=== PATIENT | female | born 1980 | race Caucasian/White ===

== ENCOUNTER 2016-12-17 04:19 | Inpatient (IN) | payer OTHER ==
[~2016-12-17] VITALS: Ht 162.6 cm; Wt 77.9 kg
[~2016-12-17 04:19] MED LIST: DILT120T10 PO; NO ACTIVE MEDS
[2016-12-17 04:22] VITALS: BP 137/91; PULSE 76; RESP 18; O2SAT 100
--- NOTE | 2016-12-17 04:33 | ED.REPORT ---
HPI-Abd Pain F Under 39 Date of Service December 17, 2016 ED Provider: Dr. Perico Haines M.D. 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 Associated symptoms include nausea and vomiting. The patient denies other symptoms. She has had similar symptoms in the past. The patient has been seen in clinic since onset where labs indicated elevated liver enzymes and and an MRCP showed scarring in the common bile duct with partial obstruction, per the patient. Her labs and MRCP were ordered by Dr. Mcgraw. Nursing Notes Stated Complaint: ABDOMINAL PAIN/VOMITING Chief Complaint: Female Abdominal Pain Nursing Notes Reviewed: Yes Allergies: Coded Allergies: No Known Allergies (Verified , 12/17/16) Scheduled Diltiazem-Expunged Drug, Do Not Renew! (Diltiazem-Expunged Drug, Do Not Renew!) 120 Mg Tablet 120 MG PO DAILY Miscellaneous Medications ([No Active Meds]) General Time Seen by MD: 04:32 Chief Complaint Abdominal pain Hx Obtained From: Patient Arrived By: Walk-in Sudden in Onset?: No Onset Occurred: 2 days ago Symptom Duration: Since onset Location: : RUQ Quality: Painful Severity: Current: Moderate Severity: Maximum: Moderate Pertinent Negative: Relieved by nothing Context Related History: Reports: Abdominal surgery Recent Healthcare: Recent doctor visit Similar Sx Previous: Yes Past Medical History Past Medical History Nephrolithiasis Biliary colic Type 2 sphincter of Oddi dysfunction Past Surgical History Biliary sphincterotomy x2 with evidence of biliary stent restenosis Cholecystectomy Reports: Cholecystectomy Social History Rarely drinks alcohol Other Social History: Good social support Ambulatory Status Independent Review of Systems Constitutional: Denies: Fever Respiratory: Denies: Non-productive cough, Shortness of breath GI: Reports: Abdominal pain (RUQ), Nausea, Vomiting Complete sys rev & neg: except as marked. Physical Exam Initial Vital Signs Vital Signs (First) Date Time Temp Pulse Resp B/P Pulse Ox O2 Delivery O2 Flow Rate FiO2 12/17/16 04:22 37.0 76 18 137/91 100 Room Air Initial VS: Reviewed, Vital signs abnormal Head / Eyes: Atraumatic, Normocephalic ENT: Conjunctiva normal, No scleral icterus Neck: Supple, Full range of motion Skin: Warm, Dry, No cyanosis Neurologic: Alert, Oriented, Nonfocal Psychiatric: Mood/affect normal, Behavior normal, Normal thought content General/Constitutional: Awake, Alert, No acute distress Appearance / Presentation: Positive: Uncomfortable Fatigued Respiratory / Chest: Breath sounds NL, Breath sounds = bilat, No respiratory distress Cardiovascular: Heart rate NL, Regular rhythm, Heart sounds NL Abdomen: Soft Tenderness/Guarding/Rebound: Positive: Tender RUQ... Interpretation & Diagnostics Lab Results Interpretation Result Diagram: 12/17/16 0440 12/17/16 0440 Test 12/17/16 04:40 12/17/16 06:05 White Blood Count 2.9th/mm3 (3.8-10.1) Red Blood Count 4.97mil/mm3 (3.90-5.20) Hemoglobin 14.5g/dL (12.0-15.6) Hematocrit 42.8% (35.0-46.0) Mean Corpuscular Volume 86.1fL (81-100) Mean Corpuscular Hemoglobin 29.2pg (27.0-35.0) Mean Corpuscular Hemoglobin Concent 33.9% (32.0-37.0) Red Cell Distribution Width 13.2% (12.3-15.4) Platelet Count 215bil/L (150-400) Neutrophils (%) (Auto) 64.5% (40-74) Lymphocytes (%) (Auto) 21.4% (14-46) Monocytes (%) (Auto) 9.5% (4-12) Eosinophils (%) (Auto) 3.2% (0-5) Basophils (%) (Auto) 1.4% (0-3) Prothrombin Time 9.9sec (8.1-12.5) Prothromb Time International Ratio 0.93ratio Sodium Level 139mEq/L (134-144) Potassium Level 4.0mEq/L (3.5-5.2) Chloride Level 100mEq/L (97-108) Carbon Dioxide Level 25mmol/L (18-29) Blood Urea Nitrogen 7mg/dL (6-20) Creatinine 0.52mg/dL (0.57-1.00) Estimat Glomerular Filtration Rate 190mL/min (>59) Glucose Level 115mg/dL (60-99) Lactic Acid Level 1.0mmol/L (0.4-2.0) Calcium Level 9.2mg/dL (8.5-10.1) Magnesium Level 1.9mg/dL (1.6-2.6) Total Bilirubin 2.3mg/dL (0.0-1.2) Aspartate Amino Transf (AST/SGOT) 2432U/L (0-50) Alanine Aminotransferase (ALT/SGPT) 2163U/L (0-32) Alkaline Phosphatase 180U/L (25-150) Total Protein 7.6g/dL (6.4-8.4) Albumin 4.5g/dL (3.4-5.0) Lipase 44U/L (13-60) Lab Results Interpretation: Low white blood count, markedly elevated LFTs and bilirubin. ECG Interpretation ECG Interpretation: Sinus rhythm rate 57 Time: 04:55 Interpreted by: ED physician Re-Eval/Medical Decision Med Decision/Clinical Course 36-year-old female with a history of cholecystectomy and recurrent common bile duct obstruction requiring sphincterotomy. She presents now with increasing biliary colic. Labs were drawn yesterday but are not available yet. Labs here show elevated LFTs in the 2000 range and a bilirubin of 2.5. Her white count is low at 2900. She had an MRCP done yesterday but the results of that are not available yet. Her case was discussed with Dr. Velasco initially. Her care is being turned over at change of shift to Dr. Anderson. He will obtain the MRCP results and talk with Dr. Velasco for disposition. Source of Hx: Old records Re-Evaluation/Progress : Time of Eval: 05:44 Patient Status: Condition improved Re-Evaluation/Progress Note: Discussed with patient lab results with plan for transfer of care to Dr. Anderson at change of shift. Patient agrees with plan for care and all questions were addressed. Consultation : Referral / Consult Name: Tiffanie Velasco MD Call Returned at: 05:37 Rooming House Keeper: Agrees with eval, Agrees with plan Note: GI: Discussed patient's case. Counseled Regarding: Lab results Discharge & Departure Shift Change Sign-Out Patient Care Transferred: Yes (Dr. Anderson) Discussed Complaint(s): Yes Laboratory Evaluation: Lab evaluation discussed Response to Therapy: Improved Primary Impression: Hepatitis Referrals: Donald Montana ND (PCP) Lazaro Mcgraw MD Care Transferred to: Dr. Anderson Care Transferred at: 06:00 Nathan Attestation Portions of this note were transcribed by Va Joseph. I, Dr. Haines, personally performed the history, physical exam, and medical decision-making; I reviewed and confirmed the accuracy of the information in the transcribed note. Signed by: Nathan Worthington, 12/17/2016, 06:10 copies to: Lazaro Mcgraw MD; Donald Montana ND, Howard L MD December 17, 2016 04:33 VA JOSEPH December 17, 2016 04:40
[2016-12-17] MEDS ORDERED: 0.9% Sodium Chloride 1,000 ML IV ONE ×2 (04:38→06:35)
[2016-12-17 04:48] LABS: BASOPHILS % (AUTO) 1.4 % (0-3); EOSINOPHILS % (AUTO) 3.2 % (0-5); MONOCYTES % (AUTO) 9.5 % (4-12); Mean Corpuscular Hemoglobin 29.2 pg (27.0-35.0); Mean Corpuscular Volume 86.1 fL (81-100); NEUTROPHILS % (AUTO) 64.5 % (40-74); Platelet Count 215 bil/L (150-400)
[2016-12-17] MEDS: Ondansetron 2 mg/mL 2 mL Inj IVPUSH PRN ×3 (04:52→10:47)
[2016-12-17] MEDS: HYDROmorphone 1 mg/mL Inj IVPUSH PRN ×2 (04:52→05:55)
[2016-12-17 05:07] LABS: INR 0.93 ratio
[2016-12-17 05:11] LABS: Magnesium 1.9 mg/dL (1.6-2.6)
[2016-12-17 06:36] VITALS: BP 130/75; PULSE 63; RESP 16; O2SAT 100
[2016-12-17] MEDS ORDERED: Ondansetron 2 mg/mL 2 mL Inj IVPUSH PRN ×2 (07:25→09:15)
[2016-12-17] MEDS ORDERED: Alum-Mag Hydrox-Simeth 30 mL Suspension PO PRN ×2 (07:25→09:15)
[2016-12-17] MEDS ORDERED: DOXY25TA46 PO (08:23)
[2016-12-17 08:50] VITALS: BP 119/74; PULSE 60; RESP 12; O2SAT 99
--- NOTE | 2016-12-17 09:05 | NUR ---
Admit Pt admitted at 0820. VSS. Denies significant nausea or vomiting and/or pain at this time - controlled fro m ED. oriented to room and call light, family at bedside.
[2016-12-17] MEDS ORDERED: Polyethylene Glycol (PEG) 17 Gm Powder PO PRN (09:15)
[2016-12-17] MEDS ORDERED: HYDROmorphone 1 mg/mL Inj IVPUSH PRN (09:15)
[2016-12-17 09:32] LABS: APPEARANCE,URINE TURBID (CLEAR,HAZY); COLOR,URINE DARK YELLOW (YELLOW); OCCULT BLOOD,URINE SMALL (NEGATIVE)
[2016-12-17 09:33] LABS: UROBILINOGEN,URINE NORMAL (NORMAL)
[2016-12-17] MEDS: 0.9% Sodium Chloride 1,000 ML IV SCH ×2 (09:58→22:03)
[2016-12-17 10:09] LABS: ICTOTEST,URINE POSITIVE (Negative)
--- NOTE | 2016-12-17 10:24 | PCM.CHPMED ---
Subjective Date of Service: December 17, 2016 Primary Physician: Admitting Physician: New Xiong DO Primary Care Physician: Donald Montana ND Attending Physician: New Xiong DO Chief Complaint: Chief Complaint: N/V and RUQ abdominal pain History of Present Illness: GI consult note 36-year-old female with a history of biliary colic S/P cholecystectomy with 2 sphincterotomies in 2009 and 2013 due to restenosis from likely scarring. In 2013 and was noted that she had some gravel in the common bile duct. Her presentation on admission overnight include a one-week history of back pain without radiation. Upper quadrant pain described as cramping and occasionally sharp. Pain was reported 10 out of 10. She attempted to to the bathroom without success after much straining, found some small amount of red blood on the tissue. Patient seen by Dr. Mcgraw in the office yesterday with the plan of an urgent MRCP and EGD. Patient also had LFTs drawn with an ALT and AST greater than 2000 and a mildly elevated alkaline phosphatase. Patient states that these episodes happen once year prior to her cholecystectomy and now happen once every year. Patient is currently not nauseous or vomiting, and pain subsided somewhat as she is not eating, with last meal being at 4 PM last night. Patient denies fever, chills, lightheadedness, dizziness, chest pain, or shortness of breath. She does state that she has been more constipated and her urine is concentrated now as she is not been taking fluid. On admission the patient was hydrated with 2 L of normal saline. Labs showed a moderate leukopenia with normal vital signs. Urine was clean culture was not obtained as it was not indicated. PT/INR within normal limits. Hepatitis panel is pending. AST is 2432, ALT is 2163, alkaline phosphatase is 180, total bilirubin is 2.3. Creatinine 0.52. Review of Systems: See history of present illness PMH Past Medical History Nephrolithiasis Biliary colic Type 2 sphincter of Oddi dysfunction Surgical History cholecystectomy sphincterotomy as listed in w e/o biliary stent restenosis Home Medications None reported Allergies: Coded Allergies: No Known Allergies (Verified , 12/17/16) Family History Family History Extensive family history of cholecystitis no history of autoimmune diseases or cancer Social History Hx Alcohol Use: NoHx Substance Use: NoHx Tobacco Use: No Smoking Status: Never Smoker Exam Vital Signs Vital Sign - Last Date Time Temp Pulse Resp B/P Pulse Ox O2 Delivery O2 Flow Rate FiO2 12/17/16 08:50 36.9 60 12 119/74 99 Room Air Intake and Output 12/16/16 12/16/16 12/17/16 Cumulative From/Thru 15:00 23:00 07:00 12/17/16 04:22 - 12/17/16 06:37 Intake Total 2000 ml 2000 ml Balance 2000 ml 2000 ml Intake IV Total 2000 ml 2000 ml General: Alert, Oriented X3, Cooperative Eyes: PERRLA, Scleral Anicteric Mouth: Mucous Membr Moist/[place] Chest & Lungs: Chest Wall Normal, Clear to auscultation & percussion Cardiovascular: Exam Unremarkable, Regular Rate/Rhythm Abdomen: Tender (right upper quadrant; positive Javier sign), Non-distended, Normoactive bowel tones Musculoskeletal: Unremarkable Extremities: No cyanosis/clubbing/edma bilat Neurological: Grossly Neurologically Intact Lab and Diagnostics Result Diagram: 12/17/1643912/17/160 Assessment & Plan Assessment 36-year-old with recurrent biliary colic with 2 prior interventions with ERCP and sphincterotomy was following cholecystectomy who presents with nausea vomiting and right upper quadrant pain consistent with prior attacks of biliary colic. Patient's LFTs are very significantly elevated with doubling of her bilirubin and mild increase in alkaline phosphatase. Likely second to new or recurrent stricture in the common bile duct. Pt to undergo CT w/ contrast and once that is resulted further recommendations will be made. Likely pt will require ERCP for additional evaluation. In the mean time we recommend liberal hydration as well as making the pt NPO if not already done. Hepatitis panels already pending. Thank you for allowing us to participate in the care of this patient. Problems: Attending Statement pt seen and examined with resident physician patient denies Tylenol use unclear etiology for her elevated LFT's await Ct to evaluate hepatic vessels and parenchyma of the liver Acute viral hepatitis panel ordered folow Lft's with INR Kane Rose DO December 17, 2016 10:24 Tiffanie Velasco MD December 20, 2016 10:12
[2016-12-17] MEDS ORDERED: Famotidine 10 mg/mL 2 mL Inj IV ONE (11:05)
[2016-12-17] MEDS ORDERED: Famotidine Inj 20 MG in IV Premix 1 EACH IV ONE (11:10)
[2016-12-17 13:00] VITALS: BP 116/76; PULSE 54; RESP 12; O2SAT 100
--- NOTE | 2016-12-17 13:03 | NUR ---
CT pt down for CT at 1303. stable and w/o complaints. Addendum: 12/17/16 at 1323 by ASHLY FRIEDMAN RN back from Ct at 1315, stable and pain/ nausea controlled
--- NOTE | 2016-12-17 13:31 | DRSVH ---
PROCEDURE: CT ABDOMEN WITH CONTRAST ([id number]) INDICATIONS: abnormal lfts TECHNIQUE: After the administration of oral and intravenous contrast, 5 mm thick sections acquired from the diap hragms to the iliac crests. 5 mm thick coronal and sagittal reformats were acquired. For radiation dose reduction, the following was used: automated exposure control, adjustment of mA and/or kV accor ding to patient size. COMPARISON: Zaynab Nichols, , MR ABD WO CON, 12/16/2016, 13:16. FINDINGS: Image quality: Excellent. Lung bases: Lung bases are clear except for mild atelectasis. Heart size is normal. Solid organs: Liver and spleen are normal in size and enhancement except for the presence of mild pe riportal edema, best seen in the right hepatic lobe. Gallbladder has been previously resected. Bili fernando system is non dilated. Pancreas enhances normally. No adrenal nodules. Kidneys are normal in s ize, without hydronephrosis. Peritoneum and bowel: Contrast enhanced bowel loops appear normal in caliber. No free fluid or air. Nodes and vessels: No retroperitoneal or mesenteric adenopathy by size criteria. Aorta and inferior vena cava are normal in size. Bones: No suspicious bony lesions. No vertebral body compression fractures. Miscellaneous: No ventral hernias. IMPRESSION: Prior cholecystectomy. Note is made of mild periportal edema is seen within the right he patic lobe, a nonspecific finding which can be produced by any source of increased lymphedema involvi ng the liver. Common etiology would include hepatitis, and prior trauma. In the absence of central mass lesion restriction of lymphatic outflow by neoplasm would not be suspected. No pancreatic mass or pancreatic ductal distention is seen and within the liver parenchyma itself no focal or generalize d biliary distention is found. Dictated by: Rudy Preston M.D. on 12/17/2016 at 13:26 Approved by: Rudy Preston M.D. on 12/17/2016 at 13:29
--- NOTE | 2016-12-17 14:57 | PCM.HPMED ---
Subjective Date of Service December 17, 2016 Primary Provider: Admitting Physician: New Xiong DO Primary Care Physician: Donald Montana ND Attending Physician: New Xiong DO Admit Status: From the Emergency Department Chief Complaint: n/v/abdom pain History of Present Illness: 36-year-old female with significant history of biliary colic with previous sphincterotomies in 2009 and 2013 due to restenosis as well as having a cholecystectomy - presenting with altered pain described as sharp and crampy with multiple episodes of emesis, nonbloody and began last evening. Patient rated pain 10/10. Patient also noted some hard stools of late, usually regular and did have small red blood on tissue after wiping. Patient denies IV drug use , alcohol abuse or tobacco use. Patient was noted by Dr. Mcgraw in the clinic to have elevated LFTs with AST/L ALT in the thousands and an MRCP demonstrated scarring in the common bile duct with partial obstruction per patient. Her labs and MRCP were ordered by Dr. Mcgraw.. Patient denies current nausea and states pain is mildly improved, denies current shortness breath, chest pain and has been hydrated in the ER. Review of Systems: complete ROS unremarkable unless stated in HPI Allergies Coded Allergies: No Known Allergies (Verified , 12/17/16) Home Medications unisom prn PMH Nephrolithiasis Biliary colic Type 2 sphincter of Oddi dysfunction Surgical History cholecystectomy sphincterotomy as listed in w e/o biliary stent restenosis Family History aunt,maternal Gma and Brother with cholecystitis and cholecystectomy no fam hx of autoimmune dz, dm, hepatitis Social History Hx Alcohol Use: No Hx Substance Use: No Hx Tobacco Use: No Smoking Status: Never Smoker Exam Vital Signs Vital Sign - Last Date Time Temp Pulse Resp B/P Pulse Ox O2 Delivery O2 Flow Rate FiO2 12/17/16 08:50 36.9 60 12 119/74 99 Room Air Intake and Output 12/16/16 12/16/16 12/17/16 Cumulative From/Thru 15:00 23:00 07:00 12/17/16 04:22 - 12/17/16 06:37 Intake Total 2000 ml 2000 ml Balance 2000 ml 2000 ml Intake IV Total 2000 ml 2000 ml Exam Gen.: Alert, pleasant HEENT: Normocephalic atraumatic, pupils equal round and reactive to light and accommodation, moist membranes Neck: No JVD, no lymphadenopathy Cardiac: No rubs clicks murmurs or gallops, regular rate Pulmonary: No wheezes rales or rhonchi, clear to auscultation bilaterally GI: Abdomen soft, mildly tender in RUQ, no murphys, normal bowel sounds Extremities: No clubbing, cyanosis, edema, pulses intact 2+ at pedis bilaterally Psychiatric: Normal mood and affect Neuro: Cranial nerves II through XII grossly intact, no focal deficits Lab and Diagnostics Result Diagram: 12/17/1643912/17/16439 X-Rays, CTs and MRIs CT abdomen IMPRESSION: Prior cholecystectomy. Note is made of mild periportal edema is seen within the right hepatic lobe, a nonspecific finding which can be produced by any source of increased lymphedema involving the liver. Common etiology would include hepatitis, and prior trauma. In the absence of central mass lesion restriction of lymphatic outflow by neoplasm would not be suspected. No pancreatic mass or pancreatic ductal distention is seen and within the liver parenchyma itself no focal or generalized biliary distention is found. Dictated by: Rudy Preston M.D. 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 as well as having a cholecystectomy presenting with nausea vomiting abdominal pain with evidence of acute hepatitis likely obstructive Acute hepatitis, noted AST and ALT in the 2000, alkaline phosphatase 180 with elevated T bili at 2.3 -Likely secondary to biliary obstruction, appreciate GI input -anticipate ERCP and will remain nothing by mouth -Abdominal CT with contrast results reviewed -Hepatitis panel pending -IV fluids Nausea/vomiting/abdominal pain likely secondary to above -When necessary Zofran -Dilaudid IV when necessary along with bowel regimen as listed Chronic medical conditions Nephrolithiasis - stable, monitor urine output Biliary colic, likely contributing to above Patient is a full code Pain Evaluation: Adequate Pain Control GI Prophylaxis: H2 zuleyma VTE Prophylaxis: Sub-Q Enoxaparin Resuscitation Status: CPR: Attempt Resuscitation Time spent 40 minutes spent with admission and evaluation as patient. Greater than 50% time spent [id number] counseling New Xiong DO December 17, 2016 09:18
[2016-12-17] MEDS ORDERED: Lidocaine PF 1% 30 mL Inj ONE (16:24)
[2016-12-17] MEDS ORDERED: Succinylcholine Chloride 20 mg/mL 5 mL Inj ONE (16:24)
[2016-12-17] MEDS ORDERED: Dexamethasone 4 mg/mL Inj ONE (16:24)
[2016-12-17] MEDS ORDERED: Ondansetron 2 mg/mL 2 mL Inj ONE (16:24)
[2016-12-17] MEDS ORDERED: Propofol 10,000 mCg/mL 20 mL Inj ONE (16:24)
--- NOTE | 2016-12-17 16:49 | NUR ---
GI Dr. Murcia with GI notified that pt has been stable today without need for prn pain meds or nausea medications aside from premedication with zofran prior to po contrast which pt tolerated well. Per Dr. Murcia with GI, to move to clear liquids, to see pt this evening. Pt and family updated. Will monitor tolerance of po intake.
[2016-12-17 18:05] VITALS: BP 119/78; PULSE 58; RESP 12; O2SAT 99
--- NOTE | 2016-12-17 20:16 | NUR ---
GI Consulted came discussed procedure to be performed yadira. with patient /spouse NPO after 6am
[2016-12-17 21:44] LABS: Bilirubin, Direct 1.3 mg/dL (0.0-0.3)
[2016-12-17] MEDS: Famotidine Inj 20 MG in IV Premix 1 EACH IV SCH (21:48)
[2016-12-17 22:22] VITALS: BP 123/82; PULSE 54; RESP 16; O2SAT 100
[2016-12-18] VITALS (10 sets, daily range): BP systolic 110–132; BP diastolic 72–84; PULSE 63–83; RESP 14–18; O2SAT 98–100
[2016-12-18 02:11] LABS: Hepatitis A Antibody IgM Negative (Negative); Hepatitis B Core Antibody IgM Negative (Negative)
[2016-12-18 06:46] LABS: BASOPHILS % (AUTO) 1.3 % (0-3); EOSINOPHILS % (AUTO) 4.4 % (0-5); MONOCYTES % (AUTO) 7.8 % (4-12); Mean Corpuscular Hemoglobin 29.7 pg (27.0-35.0); Mean Corpuscular Volume 87.6 fL (81-100); Platelet Count 195 bil/L (150-400)
[2016-12-18] MEDS: Famotidine Inj 20 MG in IV Premix 1 EACH IV SCH ×2 (07:03→21:07)
[2016-12-18 07:10] LABS: INR 0.97 ratio
[2016-12-18] MEDS: ProchlorPERazine 5 mg/mL 2 mL Inj IVPUSH PRN ×2 (07:40→18:47)
--- NOTE | 2016-12-18 10:30 | PCM.PNMED ---
Subjective Date of Service December 18, 2016 Subjective GI progress note Overnight the patient's symptoms improved. She has not had anything by mouth. CT of the abdomen yesterday was negative for masses or biliary distention. Patient is currently nothing by mouth and scheduled to undergo ERCP this afternoon. Exam Vital Signs Vital Sign - Last Date Time Temp Pulse Resp B/P Pulse Ox O2 Delivery O2 Flow Rate FiO2 12/18/16 06:09 36.8 66 17 110/72 100 Room Air Intake and Output 12/17/16 12/17/16 12/18/16 Cumulative From/Thru 15:00 23:00 07:00 12/17/16 04:22 - 12/18/16 06:06 Intake Total 574 ml 1250 ml 3824 ml Balance 574 ml 1250 ml 3824 ml Intake Oral 240 ml 240 ml IV Total 574 ml 1010 ml 3584 ml # Voids 3 3 6 # Bowel Movements 1 1 Exam General: Alert, Oriented X3, Cooperative Eyes: PERRLA, Scleral Anicteric Mouth: Mucous Membr Moist/[place] Chest & Lungs: Clear to auscultation & percussion Cardiovascular: Regular Rate/Rhythm Abdomen: Mild tenderness on palpation, Non-distended, Normoactive bowel tones Musculoskeletal: Unremarkable Extremities: No cyanosis/clubbing/edma bilat Neurological: Grossly Neurologically Intact IVs and Medications Medications Reviewed: Medications were reviewed in detail Lab and Diagnostics Result Diagram: 12/18/1662412/18/16 0625 X-Rays, CTs and MRIs CT abdomen IMPRESSION: Prior cholecystectomy. Note is made of mild periportal edema is seen within the right hepatic lobe, a nonspecific finding which can be produced by any source of increased lymphedema involving the liver. Common etiology would include hepatitis, and prior trauma. In the absence of central mass lesion restriction of lymphatic outflow by neoplasm would not be suspected. No pancreatic mass or pancreatic ductal distention is seen and within the liver parenchyma itself no focal or generalized biliary distention is found. Dictated by: Rudy Preston M.D. on 12/17/2016 at 13:26 12-lead ECG Sinus rhythm without acute ischemic changes Assessment & Plan There is annual female who presented with nausea and vomiting with acute right upper quadrant abdominal pain mimics her prior episodes of biliary colic. Patient underwent CT yesterday that was relatively unremarkable. She states she is symptomatically improved and her lab work shows decreasing LFTs. Hepatitis panel negative. Patient scheduled to undergo ERCP today. Continue supportive care. Will make further recommendations after ERCP. Thank you for allowing us to participate in the care of this patient GI Prophylaxis: H2 zuleyma VTE Prophylaxis: Sub-Q Enoxaparin Resuscitation Status: CPR: Attempt Resuscitation Attending Statement patient seen and examined USG doppler ordered as hepatic vessels not well seen on Ct scan if USG normal then proceed to ERCP Kane Rose DO December 18, 2016 10:30 Tiffanie Velasco MD December 20, 2016 10:19
--- NOTE | 2016-12-18 11:02 | PCM.PNMED ---
Subjective Date of Service December 18, 2016 Subjective nauseated overnight - plan for adding reglan and ativan prn for persistent nausea. zofran not helping - plan for ercp today - denies f/c. Exam Vital Signs Vital Sign - Last Date Time Temp Pulse Resp B/P Pulse Ox O2 Delivery O2 Flow Rate FiO2 12/18/16 06:09 36.8 66 17 110/72 100 Room Air Intake and Output 12/17/16 12/17/16 12/18/16 Cumulative From/Thru 15:00 23:00 07:00 12/17/16 04:22 - 12/18/16 06:06 Intake Total 574 ml 1250 ml 3824 ml Balance 574 ml 1250 ml 3824 ml Intake Oral 240 ml 240 ml IV Total 574 ml 1010 ml 3584 ml # Voids 3 3 6 # Bowel Movements 1 1 Exam Gen.: Alert, pleasant HEENT: Normocephalic atraumatic, pupils equal round and reactive to light and accommodation, moist membranes Neck: No JVD, no lymphadenopathy Cardiac: No rubs clicks murmurs or gallops, regular rate Pulmonary: No wheezes rales or rhonchi, clear to auscultation bilaterally GI: Abdomen soft, mildly tender in RUQ, no murphys, normal bowel sounds Extremities: No clubbing, cyanosis, edema, pulses intact 2+ at pedis bilaterally Psychiatric: Normal mood and affect Neuro: Cranial nerves II through XII grossly intact, no focal deficits IVs and Medications Medications Reviewed: Medications were reviewed in detail Lab and Diagnostics Result Diagram: 12/18/1662412/18/16624 X-Rays, CTs and MRIs CT abdomen IMPRESSION: Prior cholecystectomy. Note is made of mild periportal edema is seen within the right hepatic lobe, a nonspecific finding which can be produced by any source of increased lymphedema involving the liver. Common etiology would include hepatitis, and prior trauma. In the absence of central mass lesion restriction of lymphatic outflow by neoplasm would not be suspected. No pancreatic mass or pancreatic ductal distention is seen and within the liver parenchyma itself no focal or generalized biliary distention is found. Dictated by: Rudy Preston M.D. 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 as well as having a cholecystectomy presenting with nausea vomiting abdominal pain with evidence of acute hepatitis likely obstructive Acute hepatitis, noted AST and ALT in the 2000, alkaline phosphatase 180 with elevated T bili at 2.3 upon admission --> improving -Likely secondary to biliary obstruction, appreciate GI input -anticipate ERCP later this afternoon -Abdominal CT with contrast results reviewed -Hepatitis panel neg -IV fluids -add toradol 30 q8PRN and if not improving, use PRN morphine Nausea/vomiting/abdominal pain likely secondary to above -When necessary Zofran, Reglan, Compazine -Dilaudid IV when necessary along with bowel regimen as listed Chronic medical conditions Nephrolithiasis - stable, monitor urine output Biliary colic, likely contributing to above Patient is a full code Pain Evaluation: Other (titrating pain medication) GI Prophylaxis: H2 zuleyma VTE Prophylaxis: Sub-Q Enoxaparin Resuscitation Status: CPR: Attempt Resuscitation Time spent 35 minutes spent with eval and New Moreira DO December 18, 2016 11:02
[2016-12-18] MEDS: MetoCLOpramide 5 mg/mL 2 mL Inj IVPUSH PRN ×2 (11:31→18:54)
[2016-12-18] MEDS: 0.9% Sodium Chloride 1,000 ML IV SCH (11:31)
--- NOTE | 2016-12-18 12:35 | DRSVH ---
PROCEDURE: US ABDOMEN DOPPLER INDICATIONS: evaluate hepatic vessels as LFT's high TECHNIQUE: Real-time scanning was performed of the abdominal and retroperitoneal organs, with image documentatio n. COMPARISON: [facility], CT, CT ABD W CON, 12/17/2016, 13:10. FINDINGS: Liver length: 14.62 cm Gallbladder Wall Thickness: n.a. CHD: 3.10 mm CBD: 5.30 mm Spleen length: 10.08 cm Right kidney length: 10.98 cm Left kidney length: 11.13 cm Aorta(Proximal): 1.97 cm Aorta(Mid): 1.90 cm Aorta(Distal): 1.50 cm RCIA: 1.06 cm LCIA: 1.07 cm Liver: Liver is normal in size and demonstrates echogenic portal triads. The main portal vein measu res 8 mm in diameter and demonstrates hepatopedal flow. Hepatic arteries, hepatic veins, and portal v eins demonstrate normal waveform and direction flow. Gallbladder: Surgically removed Biliary ducts: Intrahepatic bile ducts are non-dilated. Extrahepatic bile duct caliber is normal. Normal is 6-7 mm or less in diameter, or 10 mm or less post-cholecystectomy. Pancreas: Visualized portions of the pancreas are sonographically normal. Spleen: Spleen is normal in size and homogeneous in echotexture. Kidneys: Kidneys are normal in size and echotexture. No hydronephrosis or nephrolithiasis. No alex d masses. Aorta: Visualized aorta is normal in caliber at less than 3 cm. Iliacs: Proximal common iliac arteries are normal in caliber at less than 2.5 cm. IVC: Intrahepatic inferior vena cava is patent. Miscellaneous: No free abdominal fluid. IMPRESSION: 1. The ultrasound appearance of livers suggest hepatitis. Recommend clinical correlation. 2. Normal Doppler exam of liver with patent portal vein, hepatic vein and hepatic arteries. The brandon l vein demonstrates hepatopedal flow. Dictated by: Farheen Denson M.D. on 12/18/2016 at 12:29 Approved by: Farheen Denson M.D. on 12/18/2016 at 12:33
[2016-12-18] MEDS ORDERED: Lactated Ringer's 1,000 ML IV ONE (16:23)
[2016-12-18] MEDS: Lactated Ringer's 1,000 ML IV SCH ×2 (16:23→16:32)
--- NOTE | 2016-12-18 16:23 | PCM.HPANE ---
Patient Data Surgeon Admitting Provider:New Xiong DO Attending Provider:New Xiong DO Primary Care Physician:Donald Montana ND Other Provider: Reason for Visit Biliary Colic Ht/WT & BMI Height (Feet): 5 Height (Inches): 4.00 Weight (Kilograms): 77.900 Body Mass Index 29.00 Allergies Coded Allergies: No Known Allergies (Verified , 12/17/16) Past Anesthesia History Anesthesia History: Denies:: Abnormal Airway, Anesthesia Reactions, Difficult Intubation, Fam Anesthesia Reaction, Fam Malignant Hypertherm, Malignant Hyperthermia Diabetes History Hx Diabetes?: No MRSA MRSA: No Medications Reported Medications Doxylamine Succinate (Unisom)25 Mg [id number] Mg PO HS 12/17/16 Discontinued Reported Medications Diltiazem-Expunged Drug, Do Not Renew! 120 Mg [id number] Mg PO DAILY 08/07/13 [No Active Meds] No Conflict Check 07/31/13 History History of ENT Problems?: No HEENT History: Denies:: Abnormal Airway Cataracts Difficult Intubation Dysphagia Glaucoma Hearing Problem Sinus Problem Denture Type: None Teeth Condition: Within Normal Limits Hx of Heart Problems?: No Cardiovascular History: Denies:: Cardiac Surgery Chest Pain Congestive Heart Failure Edema Heart Murmur Hypertension Irregular Heartbeat Pacemaker Thrombophlebitis Hx of Respiratory Problem?: No Respiratory History: Denies:: Asthma COPD Chest Surgery Dyspnea Emphysema Hemoptysis Pneumonia Tuberculosis Hx Neurologic Problems?: No Neurological History: Denies:: Alzheimer's Disease CVA Dementia Dizziness Headaches Parkinson's Disease Seizures Hx of GI Problems?: Yes (Hx lap susan with biliary stricture after. Here with elevated LFT's) Other History/Comment Abdominal pain x 3 dd. High amount of nausea. Sx's have improved. 3/10 current pain. No current nausea. Last po Wed. She is hungry Hx of Problems?: No Genitourinary History: Positive for:: Kidney Stones Urinary Tract Infection Denies:: HX of Hemodialysis HX of Peritoneal Dialysis: No Female Hx: Denies:: Currently Endometriosis Pelvic Inflammatory Problems with Breasts? Hx Musculoskeletal Problems?: No Musculoskeletal History: Denies:: Back Injury Joint Replacement Musculoskeletal Trauma Hx of Psycho/Social Problems?: No Psycho Social History: Denies:: Anxiety Bipolar Disorder Hx Depression Suicide Attempt Hx Surgeries?: Yes (cholecystectomy 1999) Hx Any Other Health Problems?: No Other History: Positive for:: Hospitalization (childbirth, stomach issues, susan) Denies:: Cancer Thyroid Disease History Blood Transfusions: Positive for:: Accept Blood Products? Denies:: Blood Transfusions Hx Diabetes: No Hx Alcohol Use: NoHx Substance Use: No Smoking Status: Never Smoker Have You Smoked inLast 12 mo: No Stop/Bang Treated for Sleep Apnea?: No Do You Have a CPAP Machine?: No S-Snoring: Do You Snore Loudly: No T-Tired: feel tired, fatigued: No O-Obsered: Observed not breath: No P-Blood Pressure: treated: No B- Body Mass Index > 35 kg/m2: No A- Age over 50: No N- Neck Large Circumference: No G- Gender Male: No HUMA Total Score: 0 Risk Assessment Category Category 1A: Patient has history of documented sleep apnea, and HAS NOT received any narcotic, sedative or anesthesia administration during this stay. Category 1B: Patient has history of documented sleep apnea, and HAS received any narcotic , sedative or anesthesia administration during this stay Category 2: Patient has SUSPECTED Obstructive Sleep Apnea, and HAS received any narcotic , sedative or anesthesia administration during this stay. Category 3: Patient has SUSPECTED Obstructive Sleep Apnea and HAS NOT received narcotic, sedative or anesthesia administration during this stay. Category 4: Outpatient in Procedural Areas with known sleep apnea or who screen positive for High Risk via the STOP/BANG questionnaire. Exam Exam Vital Signs Vital Signs Date Time Temp Pulse Resp B/P Pulse Ox O2 Delivery O2 Flow Rate FiO2 12/18/16 16:10 36.9 66 16 127/81 100 Room Air 12/18/16 14:00 36.9 78 18 115/77 100 Room Air 12/18/16 10:00 36.9 68 18 115/77 99 Room Air General Appearance: Alert, Oriented X3, Cooperative HEENT/AIRWAY: MP 2, Neck Movement (FROM) Lungs: Clear to Auscultation, Clear to Percussion Heart: Exam Unremarkable, Regular Rate/Rhythm Meds/Labs/Diagnostics Admission Meds Current Medications Enoxaparin Sodium 40 mg 40 mg DAILY SUBQ Last administered on 12/18/16t 07:40; Start 12/18/16 at 08:30 Famotidine/Sodium Chloride/Premix (Pepcid Inj/IV Premix) 50 ml @ 100 mls/hr Q12 IV Last administered on 12/18/16 07:03; Start 12/17/16 at 20:30 Lorazepam (Ativan Inj) 0.25 mg PRN ONCE IVPUSH Last administered on 12/18/16 07:19; Start 12/18/16 at 07:05; Stop 12/18/16 at 07:10; Status DC Labs Test 12/17/16 04:40 12/17/16 06:05 12/17/16 07:16 12/17/16 07:23 Lactic Acid Level 1.0mmol/L (0.4-2.0) Magnesium Level 1.9mg/dL (1.6-2.6) Lipase 44U/L (13-60) Hepatitis A IgM Antibody Negative (Negative) Hepatitis B Surface Antigen Negative (Negative) Hepatitis B Core IgM Antibody Negative (Negative) Hepatitis C Antibody <0.1s/co ratio (0.0-0.9) Hepatitis C Comment Comment (.) Urine HCG, Qualitative Negative (Negative) Hold Urine Received (Received) Urine Color Dark yellow (YELLOW) Urine Appearance Turbid (CLEAR,HAZY) Urine pH 6.0 (5.0-8.0) Urine Specific [place] 1.020 (1.003-1.035) Urine Protein Negativemg/dL (NEG,TRACE) Urine Glucose (UA) Negativemg/dL (NEGATIVE) Urine Ketones 15mg/dL (NEGATIVE) Urine Occult Blood Small (NEGATIVE) Urine Nitrite Negative (NEGATIVE) Urine Bilirubin Moderate (NEGATIVE) Urine Ictotest Positive (Negative) Urine Urobilinogen Normalmg/dL (NORMAL) Urine Leukocyte Esterase Negative (NEGATIVE) Urine RBC 0-2/hpf (0-2) Urine WBC 0-5/hpf (0-5) Urine Epithelial Cells Occasional/hpf (NONE-MOD) Urine Crystals Amorphous urates (NONE Urine Bacteria None/hpf (NONE-FEW) Urine Hyaline Casts None/lpf (NONE) Urine Granular Casts None seen (NONE SEEN) Urine Waxy Casts None seen (NONE SEEN) Urine Red Blood Cell Casts None seen (NONE SEEN) Urine White Blood Cell Casts None seen (NONE SEEN) Urine Mucus None seen (None Seen) Urine Trichomonas None seen (NONE SEEN) Urine Yeast None (NONE SEEN) Urinalysis Comment None Urine Culture Reflexed Not indicated Test 12/17/16 21:10 12/18/16 06:25 Direct Bilirubin 1.3mg/dL (0.0-0.3) Hepatitis B Core IgM Ab Confirm Negative (Negative) White Blood Count 3.2th/mm3 (3.8-10.1) Red Blood Count 4.45mil/mm3 (3.90-5.20) Hemoglobin 13.2g/dL (12.0-15.6) Hematocrit 39.0% (35.0-46.0) Mean Corpuscular Volume 87.6fL (81-100) Mean Corpuscular Hemoglobin 29.7pg (27.0-35.0) Mean Corpuscular Hemoglobin Concent 33.8% (32.0-37.0) Red Cell Distribution Width 13.2% (12.3-15.4) Platelet Count 195bil/L (150-400) Neutrophils (%) (Auto) 54.0% (40-74) Lymphocytes (%) (Auto) 32.5% (14-46) Monocytes (%) (Auto) 7.8% (4-12) Eosinophils (%) (Auto) 4.4% (0-5) Basophils (%) (Auto) 1.3% (0-3) Prothrombin Time 10.4sec (8.1-12.5) Prothromb Time International Ratio 0.97ratio Sodium Level 143mEq/L (134-144) Potassium Level 4.4mEq/L (3.5-5.2) Chloride Level 107mEq/L (97-108) Carbon Dioxide Level 23mmol/L (18-29) Blood Urea Nitrogen 3mg/dL (6-20) Creatinine 0.42mg/dL (0.57-1.00) Estimat Glomerular Filtration Rate 243mL/min (>59) Glucose Level 110mg/dL (60-99) Calcium Level 8.6mg/dL (8.5-10.1) Total Bilirubin 2.1mg/dL (0.0-1.2) Aspartate Amino Transf (AST/SGOT) 753U/L (0-50) Alanine Aminotransferase (ALT/SGPT) 1556U/L (0-32) Alkaline Phosphatase 169U/L (25-150) Total Protein 6.2g/dL (6.4-8.4) Albumin 3.8g/dL (3.4-5.0) Plan Impression Patient chart reviewed, patient interviewed and anesthestic plan with risks, benefits, and alternatives discussed, and informed consent obtained. ASA Physical Status: ASA2 Mod Systemic Disease Anesthetic Plan: GA Bene/Risks/Altern/Consents: Yes HP Complete Prior to Induction: Yes Patricio Ferrer MD December 18, 2016 16:22
[2016-12-18] MEDS ORDERED: fentaNYL-PF 50 mCg/mL 2 mL Inj ONE (16:24)
[2016-12-18] MEDS ORDERED: MetoCLOpramide 5 mg/mL 2 mL Inj IVPUSH PRN (16:25)
[2016-12-18] MEDS ORDERED: Atropine 0.4 mg/mL Inj IVPUSH PRN (16:25)
[2016-12-18] MEDS ORDERED: Ondansetron 2 mg/mL 2 mL Inj IVPUSH PRN (16:25)
--- NOTE | 2016-12-18 17:26 | NUR ---
Social Work: Screen Note Data & Assessment: EMR reviewed. Patient is a 36 y/o female that admitted on 12/17/16 for Biliary Colic per H&P. SW met with patient and patient's spouse to review SW role and discharge planning discussed. Patient does not have an Advance Directive/DPOA and declined information. Patient's insurance is [employer]. Patient's PCP is Donald Montana ND. Patient does not have any current discharge needs. SW wrote contact information on patient's white board. SW will continue to follow. Plan: Patient will likely discharge home no needs. SW will continue to follow and assist patient throughout stay. Sidra Mauricio LMSW, ACM
--- NOTE | 2016-12-18 17:37 | NUR ---
Emesis At am shift change, reported nausea and emesis. Emesis 150 ml brownish yellow. Patient reported, "It tastes like bile." MD contacted and obtained prn orders for Compazine and Ativan. Reported relief and fell asleep. At 11:25 am reported nausea w/o emesis and reported a headache, MD notified and obtained order for prn Reglan, MS and Toradol. Reglan and Toradol given patient reported relief.
--- NOTE | 2016-12-18 17:44 | NUR ---
Off Floor Left floor at 1600 to Endo for ERCP. Addendum: 12/18/16 at 1930 by TOMASA MORENO RN Returned to floor at 1840 via stretcher, denied pain or headache. Emesis 50cc on return, prn compazine and prn reglan with relief.
--- NOTE | 2016-12-18 20:02 | DRSVH ---
PROCEDURE: X-RAY E.R.C.P. - BILIARY AND PANCREATIC ([id number]) INDICATIONS: BILIARY STONES TECHNIQUE: Fluoroscopic spot films were acquired by the gastroenterology service during ERCP procedu re. COMPARISON: None. FINDINGS: Contrast material is noted in the biliary tree. No definite contrast opacification of the pancreatic duct. Wire and balloon or the proximal common bile duct. No definite filling defects id entified in the visualized biliary tree. Multiple cholecystectomy clips noted. IMPRESSION: No definite stones identified. Dictated by: Aurora Dudley MD, PhD on 12/18/2016 at 20:00 Approved by: Aurora Dudley MD, PhD on 12/18/2016 at 20:01
[2016-12-19 00:30] VITALS: BP 117/71; PULSE 85; RESP 16; O2SAT 96
[2016-12-19] MEDS: 0.9% Sodium Chloride 1,000 ML IV SCH ×2 (00:45→11:32)
--- NOTE | 2016-12-19 04:39 | NUR ---
Shift Note Pt. A&O, calm and pleasant, Denies pain,nausea or vomiting this shift, able to sleep most of the night, diet changed to [id number] to clears then advance as tolerated in 5/20 AM, vitals stable, hourly checks, call light in reach and will continue to monitor.
[2016-12-19 05:50] VITALS: BP 116/71; PULSE 82; RESP 16; O2SAT 99
[2016-12-19 06:48] LABS: BASOPHILS % (AUTO) 0.2 % (0-3); EOSINOPHILS % (AUTO) 0.2 % (0-5); MONOCYTES % (AUTO) 6.8 % (4-12); Mean Corpuscular Hemoglobin 29.6 pg (27.0-35.0); Mean Corpuscular Volume 87.2 fL (81-100); NEUTROPHILS % (AUTO) 78.9 % (40-74); Platelet Count 204 bil/L (150-400)
[2016-12-19 07:40] VITALS: BP 110/72; PULSE 86; RESP 20; O2SAT 100
--- NOTE | 2016-12-19 08:19 | ENDO ---
[address] [address] ENDOSCOPY PROCEDURE PATIENT: ADI RAMON : 1980 MR#: [id number] ADMIT: 12/17/2016 JOB ID: [id number] DATE: 12/18/2016 PROCEDURE: ERCP and an upper endoscopy. INDICATIONS: A 36-year-old female with acute onset of right upper quadrant pain, nausea and vomiting. She was found to have massive hepatitis. Biliary imaging was equivocal with respect to MRCP. 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 Doppler ultrasound excluded any obvious ongoing hepatic vascular pathology. EQUIPMENT: Standard duodenoscope and a standard upper endoscope. SEDATION: This was general anesthesia with endotracheal intubation as provided by Dr. Patricio Ferrer. COMPLICATIONS: None identified. PROCEDURAL INFORMATION: After the risks and benefits were explained, written and verbal informed consent was obtained. The patient was placed into the prone position following anesthesia and intubation. The scope was introduced into the mouth through the bite block, and advanced to the second portion of the duodenum. The biliary orifice was easily identified. The anatomy appeared again unusual. It looked like she had had a prior sphincterotomy and the biliary orifice appeared to be superior to a bar of mucosa that had grown in a transverse fashion across the prior sphincterotomy. That said, there did not appear to be any obstruction at the orifice and tiwari bile was freely flowing. Biliary cannulation was easy with an Olympus 20 mm sphincterotome. The biliary tree was cannulated with an 0.25 short VisiGlide guidewire. Initial contrast injection did not suggest any obvious filling defect. I swapped out for the balloon tipped catheter and using the 8.5 mm setting, we swept the duct on several occasions and performed some occlusion cholangiography and did not identify any obvious stricture, mass, stone or sludge. The balloon came through the biliary orifice at the 8.5 setting with a little bit of force required. No significant bleeding. Procedure was thereafter terminated. The scope was withdrawn from the patient. We swapped out for a standard diagnostic upper endoscope, reintubated and advanced to the second portion of the duodenum. Retroflexed views were accomplished in the stomach. Multiple photographs were taken. The stomach was then decompressed, the scope removed the patient who tolerated the procedure well. A 100 mg indomethacin suppository was placed to prophylax against post ERCP pancreatitis. The patient was extubated and transferred to the PACU in stable condition. FINDINGS: As described above. Unusual major papilla anatomy considering prior sphincterotomy. That said, no obvious ongoing obstruction. There was free-flowing bile at the outset of the case. Biliary cannulation did not disclose any obvious stricture or mass lesion. I did not see any stone or sludge. On the standard EGD portion of the procedure, the duodenal mucosa appeared normal. There was a large perhaps 5-6 cm patch up in the fundus region that appeared quite hyperemic with a beefy red color but no obvious overlying mucosal pathology. The esophageal mucosa appeared unremarkable. No significant hiatal hernia noted. ENDOSCOPIC DIAGNOSIS: 1. Large beefy red patch of submucosal hyperemia in the fundus. 2. Prior biliary sphincterotomy with unusual but stable mucosal overgrowth at the sphincterotomy site. 3. Decompressed biliary tree without stone or stricture noted. RECOMMENDATIONS: 1. N.p.o. for the next 4-5 hours. 2. Then clear liquids. 3. Advancing diet as tolerated tomorrow. 4. Continue to follow liver chemistries. 5. Further metabolic workup for massive hepatitis will be coordinated by Dr. Velasco tomorrow. 6. I have recommended a cardiac echo to exclude the remote possibility of an intracardiac thrombus. I spoke with Dr. Xiong and he has put in the order this evening.
[2016-12-19] MEDS: Famotidine Inj 20 MG in IV Premix 1 EACH IV SCH (09:27)
--- NOTE | 2016-12-19 13:41 | DRSVH ---
[facility] [address] [place] [address] Echocardiogram Report Name: ADI RAMON MStudy Date: 12/19/2016 Height: 64 in Hospital Exam Location: [facility] Weight: 172 lb Gender: Female BSA: 1.8 m2 : 1980 Age: 36 yrs BP: 116/71 mmHg Reason For Study: EVAL FOR CARDIAC THROMBUS Ordering Physician: HOSPITALIST AUSTINerformed By: Anabelle Doan Referring Physician: DR. Kodi VOGT Interpretation Summary The left ventricle is normal in size, wall thickness, and systolic function without any focal wall motion abnormalities. There is no obvious thrombus on this 2-D echocardiogram. The right ventricle is normal in size and function. The right ventricular systolic pressure is estimated at 28 mmHg assuming a right atrial pressure of 3 mm Hg. Both atria are normal in size. Injection of contrast documented an interatrial shunt suggestive of a right to left shunt. There is no color Doppler evidence for a left to right shunt. There is no significant valvular heart disease. The aortic root is normal size. Procedure: A two-dimensional transthoracic echocardiogram with color flow and Doppler was performed. The study quality was technically adequate. A saline contrast injection was performed to assess for cardiac shunting. Contrast was injected into an intravenous site in the left arm. There is no prior echocardiogram noted for this patient. The patient was in normal sinus rhythm during the exam. Left Ventricle: The left ventricle is normal in size, wall thickness, and systolic function without any focal wall motion abnormalities. There is no thrombus. The ejection fraction is estimated to be 60-65%. Assessment of diastolic parameters indicates normal left ventricular diastolic function and normal filling pressures. Right Ventricle: The right ventricle is normal in size and function. Atria: Both atria are normal in size. Injection of contrast documented an interatrial shunt. There is no Doppler evidence for an atrial septal defect. Mitral Valve: The mitral valve leaflets appear normal. There is no evidence of stenosis, fluttering, or prolapse. There is trace mitral regurgitation. Aortic Valve: The aortic valve is trileaflet. The aortic valve opens well. No aortic regurgitation is present. Tricuspid Valve: The tricuspid valve is not well visualized, but is grossly normal. There is a trace or physiologic amount of tricuspid regurgitation. The right ventricular systolic pressure is estimated at 28 mmHg assuming a right atrial pressure of 3 mm Hg. Pulmonic Valve: The pulmonic valve is not well seen, but is grossly normal. There is no pulmonic valvular regurgitation. There is no significant valvular heart disease. Great Vessels: The aortic root is normal size. The dimensions of the ascending aorta are normal. The pulmonary artery is normal size. The IVC is of normal diameter and collapses greater than 50% with a sniff. This suggests a low right atrial pressure of 3 mm Hg. Pericardium/ Pleura There is no pericardial effusion. There is no pleural effusion. MMode/2D Measurements & Calculations LVIDd: 4.6 cm LA dimension: 3.4 cm RA long axis LVOT diam LVIDs: 3.2 cm FS: 30.3 % LA A2 area: 14.2 cm RA area AoV Opening EPSS: 0.33 cm LA A4 area: 15.3 cm IVSd: 0.81 cm LA length (vol): 5.2 cm: 14.8 cm Ao root diam LVPWd: 0.70 cm LA vol: 35.6 ml RA vol LA vol index : 42.9 ml asc Aorta RA Diam: 3.1 cm : 19.4 ml/m2 : 23.4 mm2 LV brice. diameter/BSA LV sys. diameter/BSA (cm/m^2): 2.5 (cm/m^2): 1.8 Doppler Measurements & Calculations Ao V2 max MV E max reji MV E/A: 1.2 TR max reji : 130.7 cm/sec : 87.9 cm/sec Med Peak E' Reji : 249.7 cm/sec Ao max PG MV A max reij TR max PG : 6.8 mmHg : 75.2 cm/sec E/E' med: 7.7 : 24.9 mmHg Ao mean PG MV P1/2t: 54.1 msec Lat Peak E' Reji PA V2 max : 87.4 cm/sec LVOT Max Reji E/E' lat: 5.0 PA mean PG : 113.7 cm/sec E/e' average: 6.4 ISRAEL(I,D): 2.5 cm Pulm A Revs Dur PA Accel Time sev ratio : 0.17 sec MV A dur: 0.11 sec MV dec time MV P1/2t max reji Ao V2 mean LV V1 max PG : 0.18 sec : 96.5 cm/sec Ao V2 VTI: 28.4 cm LV V1 VTI MVA(P1/2t): 4.1 cm2 : 24.0 cm ISRAEL(V,D): 2.6 cm2 PA V2 mean ISRAEL indexed to BSA Pulm A Revs Dur - MV : 59.2 cm/sec (cm^2/m^2): 1.4 A Dur: 0.01 msec Reading Physician:PM
--- NOTE | 2016-12-19 14:19 | PCM.PNMED ---
Subjective Date of Service December 19, 2016 Subjective feels well no abdominal pain, nausea or vomiting reports four episodes of small volume watery loose stools at 12pm today, none since Exam Vital Signs Vital Sign - Last Date Time Temp Pulse Resp B/P Pulse Ox O2 Delivery O2 Flow Rate FiO2 12/19/16 07:40 36.8 86 20 110/72 100 Room Air Intake and Output 12/18/16 12/18/16 12/19/16 Cumulative From/Thru 15:00 23:00 07:00 12/17/16 04:22 - 12/19/16 05:50 Intake Total 1192 ml 970 ml 5986 ml Output Total 150 ml 150 ml Balance 1042 ml 970 ml 5836 ml Intake Oral 0 ml 120 ml 360 ml IV Total 1192 ml 850 ml 5626 ml Output Emesis 150 ml 150 ml # Voids 1 2 9 # Bowel Movements 0 1 Exam GEN- ambulating,oriented to person , place and time HEENT- no icterus RESP- clear to auscultation bilaterally CVS- RRR Abdomen-soft, non tender EXT- no edema Lab and Diagnostics Result Diagram: 12/19/1625 12/19/16 0625 X-Rays, CTs and MRIs CT abdomen IMPRESSION: Prior cholecystectomy. Note is made of mild periportal edema is seen within the right hepatic lobe, a nonspecific finding which can be produced by any source of increased lymphedema involving the liver. Common etiology would include hepatitis, and prior trauma. In the absence of central mass lesion restriction of lymphatic outflow by neoplasm would not be suspected. No pancreatic mass or pancreatic ductal distention is seen and within the liver parenchyma itself no focal or generalized biliary distention is found. Dictated by: Rudy Preston M.D. on 12/17/2016 at 13:26 12-lead ECG Sinus rhythm without acute ischemic changes Assessment & Plan Acute Hepatitis -Etiology unclear -aminotransferases trending down -complete chronic liver disease work up as outpatient, repeat LFT's on wednesday, discussed with patient that she will come to GI clinic on Wednesday for lab tests -I believe she is safe for discharge from GI standpoint as LFT's trending down and INR normal. patient knows if symptoms return to come back to hospital Acute Diarrhea -check C diff --I believe she could go home, as she does not appear to be dehydrated, febrile or in pain with diarrhea --will follow up on stool study once results are back Erythematous lesion in stomach seen on ERCP -outpatient EGD to evaluate GI Prophylaxis: H2 zuleyma VTE Prophylaxis: Sub-Q Enoxaparin Resuscitation Status: CPR: Attempt Resuscitation Tiffanie Velasco MD December 19, 2016 14:19
--- NOTE | 2016-12-19 14:53 | PCM.PNMED ---
Subjective Date of Service December 19, 2016 Subjective She is seen today to follow up her recent Biliary obstruction and hepatitis. She is pending a precautionary Echocardiogram today, requested by GI. The AST and ALT have dropped again today. Exam Vital Signs Vital Sign - Last Date Time Temp Pulse Resp B/P Pulse Ox O2 Delivery O2 Flow Rate FiO2 12/19/16 07:40 36.8 86 20 110/72 100 Room Air Intake and Output 12/18/16 12/18/16 12/19/16 Cumulative From/Thru 15:00 23:00 07:00 12/17/16 04:22 - 12/19/16 05:50 Intake Total 1192 ml 970 ml 5986 ml Output Total 150 ml 150 ml Balance 1042 ml 970 ml 5836 ml Intake Oral 0 ml 120 ml 360 ml IV Total 1192 ml 850 ml 5626 ml Output Emesis 150 ml 150 ml # Voids 1 2 9 # Bowel Movements 0 1 Exam Heart: RRR without murmur Lungs: CTAB Abdomen: Soft, Bowel Sounds Normal, Not tender, No organomegaly Ext: No ankle edema. IVs and Medications Medications Reviewed: Medications were reviewed in detail Lab and Diagnostics Result Diagram: 12/19/1662412/19/16624 X-Rays, CTs and MRIs CT abdomen IMPRESSION: Prior cholecystectomy. Note is made of mild periportal edema is seen within the right hepatic lobe, a nonspecific finding which can be produced by any source of increased lymphedema involving the liver. Common etiology would include hepatitis, and prior trauma. In the absence of central mass lesion restriction of lymphatic outflow by neoplasm would not be suspected. No pancreatic mass or pancreatic ductal distention is seen and within the liver parenchyma itself no focal or generalized biliary distention is found. Dictated by: Rudy Preston M.D. on 12/17/2016 at 13:26 12-lead ECG Sinus rhythm without acute ischemic changes Assessment & Plan GI Prophylaxis: H2 zuleyma VTE Prophylaxis: Sub-Q Enoxaparin Resuscitation Status: CPR: Attempt Resuscitation Mercedes Vora MD December 19, 2016 14:53 and INR normal. patient knows if symptoms return to come back to hospital Acute Diarrhea -check C diff --I believe she could go home, as she does not appear to be dehydrated, febrile or in pain with diarrhea --will follow up on stool study once results are back Erythematous lesion in stomach seen on ERCP -outpatient EGD to evaluate GI Prophylaxis: H2 zuleyma VTE Prophylaxis: Sub-Q Enoxaparin Resuscitation Status: CPR: Attempt Resuscitation Mercedes Vora MD December 19, 2016 14:53
--- NOTE | 2016-12-19 14:56 | PCM.DIMED ---
Discharge Instructions Date of Service December 19, 2016 Dates of Hospitalization December 17, 2016 at 07:40 Discharge Diagnosis Discharge Diagnosis Biliary Obstruction Obstructive Hepatitis Diet No restrictions Activity No restrictions Call your provider Fever or Chills, Shortness of breath, Chest pain, Vomitting, Excessive diarrhea Patient Instructions Follow-up Provider: Donald Montana ND Follow-up with PCP in: 1 week Provider: Kalyan Arreola MD Follow-up in: 1 week Mercedes Vora MD December 19, 2016 14:56
--- NOTE | 2016-12-19 15:02 | PCM.DC.MED ---
Discharge Summary Date of Service December 19, 2016 Dates of Hospitalization Date of Hospital Admission December 17, 2016 at 07:40 Date of Discharge: December 19, 2016 Providers: Admitting Physician: New Xiong DO Primary Care Physician: Donald Vogt ND Attending Physician: New Xiong DO Diagnosis at Time of Discharge Diagnosis at Time of Discharge Biliary Obstruction Obstructive Hepatitis Consultations Subjective Date of Service: December 17, 2016 Primary Physician: Admitting Physician: New Xiong DO Primary Care Physician: Donald Vogt ND Attending Physician: New Xiong DO Chief Complaint: Chief Complaint: N/V and RUQ abdominal pain History of Present Illness: GI consult note 36-year-old female with a history of biliary colic S/P cholecystectomy with 2 sphincterotomies in 2009 and 2013 due to restenosis from likely scarring. In 2013 and was noted that she had some gravel in the common bile duct. Her presentation on admission overnight include a one-week history of back pain without radiation. Upper quadrant pain described as cramping and occasionally sharp. Pain was reported 10 out of 10. She attempted to to the bathroom without success after much straining, found some small amount of red blood on the tissue. Patient seen by Dr. Mcgraw in the office yesterday with the plan of an urgent MRCP and EGD. Patient also had LFTs drawn with an ALT and AST greater than 2000 and a mildly elevated alkaline phosphatase. Patient states that these episodes happen once year prior to her cholecystectomy and now happen once every year. Patient is currently not nauseous or vomiting, and pain subsided somewhat as she is not eating, with last meal being at 4 PM last night. Patient denies fever, chills, lightheadedness, dizziness, chest pain, or shortness of breath. She does state that she has been more constipated and her urine is concentrated now as she is not been taking fluid. On admission the patient was hydrated with 2 L of normal saline. Labs showed a moderate leukopenia with normal vital signs. Urine was clean culture was not obtained as it was not indicated. PT/INR within normal limits. Hepatitis panel is pending. AST is 2432, ALT is 2163, alkaline phosphatase is 180, total bilirubin is 2.3. Creatinine 0.52. Review of Systems: See history of present illness PMH Past Medical History Nephrolithiasis Biliary colic Type 2 sphincter of Oddi dysfunction Surgical History cholecystectomy sphincterotomy as listed in w e/o biliary stent restenosis Home Medications None reported Allergies: Coded Allergies: No Known Allergies (Verified , 12/17/16) Family History Family History Extensive family history of cholecystitis no history of autoimmune diseases or cancer Social History Hx Alcohol Use: NoHx Substance Use: NoHx Tobacco Use: No Smoking Status: Never Smoker Exam Vital Signs Vital Sign - Last Date Time Temp Pulse Resp B/P Pulse Ox O2 Delivery O2 Flow Rate FiO2 12/17/16 08:50 36.9 60 12 119/74 99 Room Air Intake and Output 12/16/16 12/16/16 12/17/16 Cumulative From/Thru 15:00 23:00 07:00 12/17/16 04:22 - 12/17/16 06:37 Intake Total 2000 ml 2000 ml Balance 2000 ml 2000 ml Intake IV Total 2000 ml 2000 ml General: Alert, Oriented X3, Cooperative Eyes: PERRLA, Scleral Anicteric Mouth: Mucous Membr Moist/Killian Chest & Lungs: Chest Wall Normal, Clear to auscultation & percussion Cardiovascular: Exam Unremarkable, Regular Rate/Rhythm Abdomen: Tender (right upper quadrant; positive Javier sign), Non-distended, Normoactive bowel tones Musculoskeletal: Unremarkable Extremities: No cyanosis/clubbing/edma bilat Neurological: Grossly Neurologically Intact Lab and Diagnostics Result Diagram: 12/17/1643912/17/160 Assessment & Plan Assessment 36-year-old with recurrent biliary colic with 2 prior interventions with ERCP and sphincterotomy was following cholecystectomy who presents with nausea vomiting and right upper quadrant pain consistent with prior attacks of biliary colic. Patient's LFTs are very significantly elevated with doubling of her bilirubin and mild increase in alkaline phosphatase. Likely second to new or recurrent stricture in the common bile duct. Pt to undergo CT w/ contrast and once that is resulted further recommendations will be made. Likely pt will require ERCP for additional evaluation. In the mean time we recommend liberal hydration as well as making the pt NPO if not already done. Hepatitis panels already pending. Thank you for allowing us to participate in the care of this patient. Problems: Kane Rose DO Procedures XRay, CTs & MRIs CT abdomen IMPRESSION: Prior cholecystectomy. Note is made of mild periportal edema is seen within the right hepatic lobe, a nonspecific finding which can be produced by any source of increased lymphedema involving the liver. Common etiology would include hepatitis, and prior trauma. In the absence of central mass lesion restriction of lymphatic outflow by neoplasm would not be suspected. No pancreatic mass or pancreatic ductal distention is seen and within the liver parenchyma itself no focal or generalized biliary distention is found. Dictated by: Rudy Preston M.D. on 12/17/2016 at 13:26 ECG 12 Lead Sinus rhythm without acute ischemic changes Cardiac Echo Impression hocardiogram Report Name: ADI RAMON MStudy Date: 12/19/2016 Height: 64 in Hospital Exam Location: [facility] Weight: 172 lb Gender: Female BSA: 1.8 m2 : 1980 Age: 36 yrs BP: 116/71 mmHg Reason For Study: EVAL FOR CARDIAC THROMBUS Ordering Physician: HOSPITALIST STANLEYerformed By: Anabelle Doan Referring Physician: DR. Kodi VOGT Interpretation Summary The left ventricle is normal in size, wall thickness, and systolic function without any focal wall motion abnormalities. There is no obvious thrombus on this 2-D echocardiogram. The right ventricle is normal in size and function. The right ventricular systolic pressure is estimated at 28 mmHg assuming a right atrial pressure of 3 mm Hg. Both atria are normal in size. Injection of contrast documented an interatrial shunt suggestive of a right to left shunt. There is no color Doppler evidence for a left to right shunt. There is no significant valvular heart disease. The aortic root is normal size. Procedure: A two-dimensional transthoracic echocardiogram with color flow and Doppler was performed. The study quality was technically adequate. A saline contrast injection was performed to assess for cardiac shunting. Contrast was injected into an intravenous site in the left arm. There is no prior echocardiogram noted for this patient. The patient was in normal sinus rhythm during the exam. Left Ventricle: The left ventricle is normal in size, wall thickness, and systolic function without any focal wall motion abnormalities. There is no thrombus. The ejection fraction is estimated to be 60-65%. Assessment of diastolic parameters indicates normal left ventricular diastolic function and normal filling pressures. Right Ventricle: The right ventricle is normal in size and function. Atria: Both atria are normal in size. Injection of contrast documented an interatrial shunt. There is no Doppler evidence for an atrial septal defect. Mitral Valve: The mitral valve leaflets appear normal. There is no evidence of stenosis, fluttering, or prolapse. There is trace mitral regurgitation. Aortic Valve: The aortic valve is trileaflet. The aortic valve opens well. No aortic regurgitation is present. Tricuspid Valve: The tricuspid valve is not well visualized, but is grossly normal. There is a trace or physiologic amount of tricuspid regurgitation. The right ventricular systolic pressure is estimated at 28 mmHg assuming a right atrial pressure of 3 mm Hg. Pulmonic Valve: The pulmonic valve is not well seen, but is grossly normal. There is no pulmonic valvular regurgitation. There is no significant valvular heart disease. Great Vessels: The aortic root is normal size. The dimensions of the ascending aorta are normal. The pulmonary artery is normal size. The IVC is of normal diameter and collapses greater than 50% with a sniff. This suggests a low right atrial pressure of 3 mm Hg. Pericardium/ Pleura There is no pericardial effusion. There is no pleural effusion. MMode/2D Measurements & Calculations LVIDd: 4.6 cm LA dimension: 3.4 cm RA long axis LVOT diam LVIDs: 3.2 cm FS: 30.3 % LA A2 area: 14.2 cm RA area AoV Opening EPSS: 0.33 cm LA A4 area: 15.3 cm IVSd: 0.81 cm LA length (vol): 5.2 cm: 14.8 cm Ao root diam LVPWd: 0.70 cm LA vol: 35.6 ml RA vol LA vol index : 42.9 ml asc Aorta RA Diam: 3.1 cm : 19.4 ml/m2 : 23.4 mm2 LV brice. diameter/BSA LV sys. diameter/BSA (cm/m^2): 2.5 (cm/m^2): 1.8 Doppler Measurements & Calculations Ao V2 max MV E max reji MV E/A: 1.2 TR max reji : 130.7 cm/sec : 87.9 cm/sec Med Peak E' Reji : 249.7 cm/sec Ao max PG MV A max reji TR max PG : 6.8 mmHg : 75.2 cm/sec E/E' med: 7.7 : 24.9 mmHg Ao mean PG MV P1/2t: 54.1 msec Lat Peak E' Reji PA V2 max : 87.4 cm/sec LVOT Max Reji E/E' lat: 5.0 PA mean PG : 113.7 cm/sec E/e' average: 6.4 ISRAEL(I,D): 2.5 cm Pulm A Revs Dur PA Accel Time sev ratio : 0.17 sec MV A dur: 0.11 sec MV dec time MV P1/2t max reji Ao V2 mean LV V1 max PG : 0.18 sec : 96.5 cm/sec Ao V2 VTI: 28.4 cm LV V1 VTI MVA(P1/2t): 4.1 cm2 : 24.0 cm ISRAEL(V,D): 2.6 cm2 PA V2 mean ISRAEL indexed to BSA Pulm A Revs Dur - MV : 59.2 cm/sec (cm^2/m^2): 1.4 A Dur: 0.01 msec Invasive Procedures PROCEDURE: ERCP and an upper endoscopy. INDICATIONS: A 36-year-old female with acute onset of right upper quadrant pain, nausea and vomiting. She was found to have massive hepatitis. Biliary imaging was equivocal with respect to MRCP. 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 Doppler ultrasound excluded any obvious ongoing hepatic vascular pathology. EQUIPMENT: Standard duodenoscope and a standard upper endoscope. SEDATION: This was general anesthesia with endotracheal intubation as provided by Dr. Patricio Ferrer. COMPLICATIONS: None identified. PROCEDURAL INFORMATION: After the risks and benefits were explained, written and verbal informed consent was obtained. The patient was placed into the prone position following anesthesia and intubation. The scope was introduced into the mouth through the bite block, and advanced to the second portion of the duodenum. The biliary orifice was easily identified. The anatomy appeared again unusual. It looked like she had had a prior sphincterotomy and the biliary orifice appeared to be superior to a bar of mucosa that had grown in a transverse fashion across the prior sphincterotomy. That said, there did not appear to be any obstruction at the orifice and tiwari bile was freely flowing. Biliary cannulation was easy with an Olympus 20 mm sphincterotome. The biliary tree was cannulated with an 0.25 short VisiGlide guidewire. Initial contrast injection did not suggest any obvious filling defect. I swapped out for the balloon tipped catheter and using the 8.5 mm setting, we swept the duct on several occasions and performed some occlusion cholangiography and did not identify any obvious stricture, mass, stone or sludge. The balloon came through the biliary orifice at the 8.5 setting with a little bit of force required. No significant bleeding. Procedure was thereafter terminated. The scope was withdrawn from the patient. We swapped out for a standard diagnostic upper endoscope, reintubated and advanced to the second portion of the duodenum. Retroflexed views were accomplished in the stomach. Multiple photographs were taken. The stomach was then decompressed, the scope removed the patient who tolerated the procedure well. A 100 mg indomethacin suppository was placed to prophylax against post ERCP pancreatitis. The patient was extubated and transferred to the PACU in stable condition. FINDINGS: As described above. Unusual major papilla anatomy considering prior sphincterotomy. That said, no obvious ongoing obstruction. There was free-flowing bile at the outset of the case. Biliary cannulation did not disclose any obvious stricture or mass lesion. I did not see any stone or sludge. On the standard EGD portion of the procedure, the duodenal mucosa appeared normal. There was a large perhaps 5-6 cm patch up in the fundus region that appeared quite hyperemic with a beefy red color but no obvious overlying mucosal pathology. The esophageal mucosa appeared unremarkable. No significant hiatal hernia noted. ENDOSCOPIC DIAGNOSIS: 1. Large beefy red patch of submucosal hyperemia in the fundus. 2. Prior biliary sphincterotomy with unusual but stable mucosal overgrowth at the sphincterotomy site. 3. Decompressed biliary tree without stone or stricture noted. RECOMMENDATIONS: 1. N.p.o. for the next 4-5 hours. 2. Then clear liquids. 3. Advancing diet as tolerated tomorrow. 4. Continue to follow liver chemistries. 5. Further metabolic workup for massive hepatitis will be coordinated by Dr. Velasco tomorrow. 6. I have recommended a cardiac echo to exclude the remote possibility of an intracardiac thrombus. I spoke with Dr. Xiong and he has put in the order this evening. Kalyan Arreola MD 12/18/16 9883 Brief History 36-year-old female with significant history of biliary colic with previous sphincterotomies in 2009 and 2013 due to restenosis as well as having a cholecystectomy - presenting with altered pain described as sharp and crampy with multiple episodes of emesis, nonbloody and began last evening. Patient rated pain 10/10. Patient also noted some hard stools of late, usually regular and did have small red blood on tissue after wiping. Patient denies IV drug use , alcohol abuse or tobacco use. Patient was noted by Dr. Mcgraw in the clinic to have elevated LFTs with AST/L ALT in the thousands and an MRCP demonstrated scarring in the common bile duct with partial obstruction per patient. Her labs and MRCP were ordered by Dr. Mcgraw.. Patient denies current nausea and states pain is mildly improved, denies current shortness breath, chest pain and has been hydrated in the ER. Hospital Course Acute Hepatitis -Etiology unclear -aminotransferases trending down -complete chronic liver disease work up as outpatient, repeat LFT's on wednesday, discussed with patient that she will come to GI clinic on Wednesday for lab tests -I believe she is safe for discharge from GI standpoint as LFT's trending down and INR normal. patient knows if symptoms return to come back to hospital Acute Diarrhea -check C diff --I believe she could go home, as she does not appear to be dehydrated, febrile or in pain with diarrhea --will follow up on stool study once results are back Erythematous lesion in stomach seen on ERCP -outpatient EGD to evaluate Exam Vital Signs (Last) Date Time Temp Pulse Resp B/P Pulse Ox O2 Delivery O2 Flow Rate FiO2 12/19/16 07:40 36.8 86 20 110/72 100 Room Air Exam Heart: RRR without murmur Lungs: CTAB Abdomen: Soft, Bowel Sounds Normal, No masses, Not tender No ankle edema Test 12/17/16 04:40 12/17/16 06:05 12/17/16 07:16 12/17/16 07:23 Lactic Acid Level 1.0mmol/L (0.4-2.0) Magnesium Level 1.9mg/dL (1.6-2.6) Lipase 44U/L (13-60) Hepatitis A IgM Antibody Negative (Negative) Hepatitis B Surface Antigen Negative (Negative) Hepatitis B Core IgM Antibody Negative (Negative) Hepatitis C Antibody <0.1s/co ratio (0.0-0.9) Hepatitis C Comment Comment (.) Urine HCG, Qualitative Negative (Negative) Hold Urine Received (Received) Urine Color Dark yellow (YELLOW) Urine Appearance Turbid (CLEAR,HAZY) Urine pH 6.0 (5.0-8.0) Urine Specific [place] 1.020 (1.003-1.035) Urine Protein Negativemg/dL (NEG,TRACE) Urine Glucose (UA) Negativemg/dL (NEGATIVE) Urine Ketones 15mg/dL (NEGATIVE) Urine Occult Blood Small (NEGATIVE) Urine Nitrite Negative (NEGATIVE) Urine Bilirubin Moderate (NEGATIVE) Urine Ictotest Positive (Negative) Urine Urobilinogen Normalmg/dL (NORMAL) Urine Leukocyte Esterase Negative (NEGATIVE) Urine RBC 0-2/hpf (0-2) Urine WBC 0-5/hpf (0-5) Urine Epithelial Cells Occasional/hpf (NONE-MOD) Urine Crystals Amorphous urates (NONE Urine Bacteria None/hpf (NONE-FEW) Urine Hyaline Casts None/lpf (NONE) Urine Granular Casts None seen (NONE SEEN) Urine Waxy Casts None seen (NONE SEEN) Urine Red Blood Cell Casts None seen (NONE SEEN) Urine White Blood Cell Casts None seen (NONE SEEN) Urine Mucus None seen (None Seen) Urine Trichomonas None seen (NONE SEEN) Urine Yeast None (NONE SEEN) Urinalysis Comment None Urine Culture Reflexed Not indicated Test 12/17/16 21:10 12/18/16 06:25 12/19/16 06:25 Direct Bilirubin 1.3mg/dL (0.0-0.3) Hepatitis B Core IgM Ab Confirm Negative (Negative) Prothrombin Time 10.4sec (8.1-12.5) Prothromb Time International Ratio 0.97ratio White Blood Count 5.5th/mm3 (3.8-10.1) Red Blood Count 4.52mil/mm3 (3.90-5.20) Hemoglobin 13.4g/dL (12.0-15.6) Hematocrit 39.4% (35.0-46.0) Mean Corpuscular Volume 87.2fL (81-100) Mean Corpuscular Hemoglobin 29.6pg (27.0-35.0) Mean Corpuscular Hemoglobin Concent 34.0% (32.0-37.0) Red Cell Distribution Width 12.9% (12.3-15.4) Platelet Count 204bil/L (150-400) Neutrophils (%) (Auto) 78.9% (40-74) Lymphocytes (%) (Auto) 13.7% (14-46) Monocytes (%) (Auto) 6.8% (4-12) Eosinophils (%) (Auto) 0.2% (0-5) Basophils (%) (Auto) 0.2% (0-3) Sodium Level 139mEq/L (134-144) Potassium Level 4.2mEq/L (3.5-5.2) Chloride Level 103mEq/L (97-108) Carbon Dioxide Level 21mmol/L (18-29) Blood Urea Nitrogen 7mg/dL (6-20) Creatinine 0.47mg/dL (0.57-1.00) Estimat Glomerular Filtration Rate 214mL/min (>59) Glucose Level 98mg/dL (60-99) Calcium Level 8.6mg/dL (8.5-10.1) Total Bilirubin 1.2mg/dL (0.0-1.2) Aspartate Amino Transf (AST/SGOT) 224U/L (0-50) Alanine Aminotransferase (ALT/SGPT) 999U/L (0-32) Alkaline Phosphatase 147U/L (25-150) Total Protein 6.0g/dL (6.4-8.4) Albumin 3.8g/dL (3.4-5.0) Discharge Medications Discharge Medications Doxylamine Succinate (Unisom) 25 Mg Tablet 25 MG PO HS (Reported) Followup Plan Follow-up plan Will go to GI clinic on Thursday 12/21 for follow up LFT. Discharge Diet: No restrictions Discharge Activity: No restrictions Follow-up Provider: Donald Vogt ND Follow-up with PCP in: 1 week Provider: Kalyan Arreola MD Follow-up in: 1 week Mercedes Vora MD December 19, 2016 15:02
--- NOTE | 2016-12-19 15:54 | NUR ---
stool sample Sent sample down to lab at 1500. Called to see if sample big enough, stated doesn't look big enough. Notified patient, enc to see another sample can be taken. If not supplies will be sent with the patient to collect sample wednesday morning prior to MD appt.
--- NOTE | 2016-12-19 16:25 | NUR ---
Discharge Reviewed DC instructions with patient and . Sent sample container home with patient for collection prior to appt on Wednesday. Had only 2 sm dots of loose brown fluid. Did send sample, but unsure if large enough. Pt very eager to go home. Pt amb to private vehicle to home with family. All belongings taken. Info packet sent home on C-Diff.
== END 2016-12-19 16:25 | disposition home or self-care (01) | DRG 392 ==
LOC: SED 04:19 → MOC 07:40
PROVIDERS: ADMIT Internal Medicine; ATTEND Internal Medicine
PROC: 0F798ZZ Dilation of Common Bile Duct, Via Natural or Artificial Opening Endoscopic (ICD-10-PCS; principal; 2016-12-19)
PROC: 0DJ08ZZ Inspection of Upper Intestinal Tract, Via Natural or Artificial Opening Endoscopic (ICD-10-PCS; 2016-12-19)
DX: K31.9 Disease of stomach and duodenum, unspecified (principal); B17.9 Acute viral hepatitis, unspecified; Z90.49 Acquired absence of other specified parts of digestive tract; Z83.79 Family history of other diseases of the digestive system